=== PATIENT | female | born 1995 | race Caucasian/White ===

== ENCOUNTER 2018-09-15 22:03 | Emergency (ER) | payer OTHER, SELFPAY ==
[2018-09-15 22:03] VITALS: BP 117/71; PULSE 82; RESP 18; TEMP 36.1; O2SAT 100; BMI 28.3
[2018-09-15] MEDS: Lidocaine/Epi/Tetracaine 50 ML 1 APPLIC TOPICAL (23:03)
--- NOTE | 2018-09-15 23:51 | ED.VISSUMM ---
- ER Visit Summary Date of Service: 09/15/18 Chief Complaint: Hand laceration History of Present Illness: The patient is a 22 F who was opening a box when she sustained a laceration to the webspace in between her ring and long finger. Physical Examination: Afebrile vital signs stable there is a 1 cm linear laceration in between the webspace between her right ring and long finger. No active bleeding. Neurovascular intact. Emergency Department Course and Treatment: Wound was locally anesthetized using LAT and then some 1% lidocaine to ensure adequate anesthesia. Wound was washed with Shur-Clens and explored.. A total of 3 simple interrupted 4-0 Ethilon sutures were placed. Wound care discussed with patient. Follow-up 10 days for suture removal Impression: 1. 1 cm right hand laceration with repair This note was generated with [employer] dictation software. It may contain incorrect words, spelling, and punctuation that were not noted in review of the chart prior to signing ED Disposition - Plan for ED Patient: Disposition: Home or Assisted Living Instructions: LACERATION, Hand Referrals: Sudhakar Baugh MD [Primary Care Provider] - 10 Day for suture removal
== END 2018-09-16 00:15 | disposition home or self-care (01) ==
PROVIDERS: Emergency Provider Emergency Medicine; Family Provider Family Medicine; PCP Family Medicine
DX: S61.411A Laceration without foreign body of right hand, initial encounter (principal); W26.8XXA Contact with other sharp object(s), not elsewhere classified, initial encounter; Y93.9 Activity, unspecified; Y92.9 Unspecified place or not applicable; E03.9 Hypothyroidism, unspecified
CPT/HCPCS: 12001; 99283

== ENCOUNTER → 2022-04-11 | Outpatient (CLI) | payer OTHER, SELFPAY ==
--- NOTE | 2022-04-11 16:08 | US_ITS ---
STUDY: THYROID ULTRASOUND REASON FOR EXAM: Female, 26 years old. L ANT CERVICAL NECK NODULE . History of hypothyroidism. TECHNIQUE: Ultrasound evaluation of the thyroid was performed with real-time and static black-scale imaging. COMPARISON: None. FINDINGS: RIGHT LOBE: The right lobe of the thyroid gland is enlarged and measures 5.6 cm x 2.6 cm x 2.4 cm. There is a heterogeneous echotexture. There is a 4 mm x 4 mm x 5 mm echogenic nodule in the inferior aspect of the right lobe of the thyroid. A similar-appearing echogenic nodule measuring 5 mm x 5 mm x 2 mm is also seen. LEFT LOBE: The left lobe of the thyroid gland and measures 5.7 cm x 2.1 cm by 1.8 cm. There is a heterogeneous echotexture. There is a 3 mm x 2 mm x 3 mm echogenic nodule in the upper pole of the left lobe. ISTHMUS: The isthmus measures 4.8 mm. The regional lymph nodes are normal. US/Thyroid IMPRESSION: Thyromegaly. Heterogeneous echotexture of both lobes of the thyroid with a bilateral subcentimeters echogenic nodules in both correlation with nuclear medicine uptake and thyroid scan is recommended. Electronically Signed: Diego Bartholomew MD at 10:26 EST ,
== END | disposition home or self-care (01) ==
PROVIDERS: PCP Family Medicine; Referring Provider Family Medicine; Visit Provider Family Medicine
DX: R22.1 Localized swelling, mass and lump, neck (principal)
CPT/HCPCS: 76536